=== PATIENT | female | born 1995 | race Caucasian/White ===

== ENCOUNTER 2016-07-24 10:03 | Emergency (ER) | payer MEDICAID ==
[2016-07-24 10:05] VITALS: BMI 18.8
[2016-07-24 10:09] VITALS: TEMP 98.2; O2SAT 100
[2016-07-24] MEDS ORDERED: Sodium Chloride 0.9% 1,000 ML IV STA (10:21)
--- NOTE | 2016-07-24 10:21 | ED PDOC ---
Arrival/HPI - General Historian: Patient - General Chief Complaint: Abdominal Pain Time Seen by Provider: 07/24/16 10:14 - History of Present Illness Narrative History of Present Illness (Text): 07/24/16 10:21 20 y/o female, no significant pmh, nkda, c/o abdominal pain with diarrhea started early this morning. Pt. stated that she has been fasting lately due to her taoism reason, feeling constipated with the last bowel movement about 1- 2 days ago, woke up this morning around 1am and started to drink entire bottle of magnesium citrate, started to have abdominal pain and watery diarrhea 1-2 hours after. Pt. stated that she feels tire and leg cramp now, no dizziness, no numbness or tingling, no palpitation, no night sweat, no dizziness, no change in vision, no other medical or psychological complaints. (Landen Alicea) Past Medical History - Provider Review Nursing Documentation Reviewed: Yes - Past History Past History: No Previous - Infectious Disease Hx of Infectious Diseases: None - Tetanus Immunization Tetanus Immunization: Unknown - Psychiatric Hx Depression: No Hx Emotional Abuse: No Hx Physical Abuse: No Hx Substance Use: No - Past Surgical History Past Surgical History: No Previous - Anesthesia Hx Anesthesia: No - Suicidal Assessment Feels Threatened In Home Enviroment: No Family/Social History - Physician Review Nursing Documentation Reviewed: Yes Family/Social History: Unknown Family HX Smoking Status: Never Smoked Hx Alcohol Use: No Hx Substance Use: No Hx Substance Use Treatment: No Allergies/Home Meds Allergies/Adverse Reactions: Allergies peaches Allergy (Severe, Uncoded 07/24/16 10:05) SWELLING rash Review of Systems - Review of Systems Constitutional: absent: Fatigue, Fevers Eyes: absent: Vision Changes ENT: absent: Hearing Changes Respiratory: absent: SOB, Cough, Sputum Cardiovascular: absent: Chest Pain Gastrointestinal: absent: Abdominal Pain, Diarrhea, Nausea, Vomiting Musculoskeletal: Arthralgias, Myalgias. absent: Back Pain Skin: absent: Rash, Pruritis, Skin Lesions Neurological: absent: Headache, Dizziness, Focal Weakness, Gait Changes Psychiatric: absent: Anxiety, Depression, Suicidal Ideation Physical Exam Vital Signs Reviewed: Yes Temperature: Afebrile Blood Pressure: Normal Pulse: Regular Respiratory Rate: Normal Appearance: Positive for: Well-Appearing, Non-Toxic, Comfortable Pain Distress: Mild Mental Status: Positive for: Alert and Oriented X 3 - Systems Exam Head: Present: Atraumatic, Normocephalic Pupils: Present: PERRL Extroacular Muscles: Present: EOMI Conjunctiva: Present: Normal Mouth: Present: Moist Mucous Membranes Neck: Present: Normal Range of Motion Respiratory/Chest: Present: Clear to Auscultation, Good Air Exchange. No: Respiratory Distress, Accessory Muscle Use Cardiovascular: Present: Regular Rate and Rhythm, Normal S1, S2. No: Murmurs Abdomen: No: Tenderness, Distention, Normal Bowel Sounds (hyperactive bowel sound), Peritoneal Signs, Rebound, Guarding Back: Present: Normal Inspection. No: CVA Tenderness, Midline Tenderness Upper Extremity: Present: Normal Inspection. No: Cyanosis, Edema Lower Extremity: Present: Normal Inspection. No: Edema Neurological: Present: GCS=15, CN II-XII Intact, Speech Normal Skin: Present: Warm, Dry, Normal Color. No: Rashes Psychiatric: Present: Alert, Oriented x 3, Normal Insight, Normal Concentration Medical Decision Making - Lab Interpretations I have reviewed the lab results: Yes Interpretation: Abnormal lab values (hgb 8.9 from 8.7) ED Course and Treatment: 07/24/16 10:24 -labs/ua -IVF/pepcid -Observe and reassess 07/24/16 13:10 -Urine hcg negative. -Labs are non-significant except chronic anemia hgb 8.9 from 8.7, asymptomatic. Pt. admits that she has heavy painful prolong period, seen by the obgyn which offer her control but she refused at that time. Pt. also admits that she doesn't like to eat red meat which is another factor. Pt. has no dark color stools or bright red rectum bleeding, no epigastric pain. I will start her on iron supplement with outpatient advised for hematology/oncology and PMD follow up. -UA show show no UTI -Pt. feels completely relief, no diarrhea in the ER, feeling much better. -Discharge home with iron supplement, pepcid, stay hydrated, bed rest, follow up with your own pmd and obgyn/GI within 2 days, return to the ER for any new or worsening signs or symptoms. (Landen Alicea) 07/24/16 14:09 I was available for consultation during PA evaluation. The chart was reviewed by me, and I agree with disposition. The documented history was done by the physician string cutter. The documented physical exam was done by the physician string cutter. The documented procedures were done by the physician string cutter. (Efraín Barrera) - Lab Interpretations Lab Results: 07/24/16 10:56 07/24/16 10:56 Lab Results 07/24/16 12:50: Urine Color Yellow, Urine Appearance Sl cloudy, Urine pH 7.0, Ur Specific Ariel 1.015, Urine Protein Negative, Urine Glucose (UA) Negative, Urine Ketones 15 H, Urine Blood Negative, Urine Nitrate Negative, Urine Bilirubin Negative, Urine Urobilinogen 0.2, Ur Leukocyte Esterase Negative 07/24/16 10:56: Sodium 136, Potassium 3.8, Chloride 103, Carbon Dioxide 24, Anion Gap 13, BUN 7, Creatinine 0.4 L, Est GFR ( Amer) > 60, Est GFR (Non -Af Amer) > 60, Random Glucose 92, Calcium 9.3, Total Bilirubin 0.5, AST 22, ALT 77 H, Alkaline Phosphatase 64, Total Protein 8.2, Albumin 4.3, Globulin 3.8 , Albumin/Globulin Ratio 1.1 07/24/16 10:56: WBC 4.1 L D, RBC 4.63, Hgb 8.9 L, Hct 31.5 L, MCV 68.0 L, MCH 19.2 L, MCHC 28.3 L, RDW 18.2 H, Plt Count 498 H, MPV 9.7, Gran % 52.2, Lymph % (Auto) 35.8 H, [place] % (Auto) 10.8 H, Eos % (Auto) 0.7 L, Baso % (Auto) 0.5, Gran # 2.13, Lymph # 1.5, [place] # 0.4, Eos # 0.0, Baso # 0.02 - Medication Orders Current Medication Orders: Discontinued Medications Famotidine (Pepcid) 20 mg IVP STAT STA Stop: 07/24/16 10:25 Last Admin: 07/24/16 10:55 Dose: 20 mg Sodium Chloride (Sodium Chloride 0.9%) 1,000 mls @ 999 mls/hr IV .Q1H1M STA Stop: 07/24/16 11:21 Last Admin: 07/24/16 10:55 Dose: 999 mls/hr Ketorolac Tromethamine (Toradol) 30 mg IVP STAT STA Stop: 07/24/16 13:14 Last Admin: 07/24/16 13:20 Dose: 30 mg - PA / CHEMISTRY QUALITY CONTROL TECHNICIAN / Resident Statement / has reviewed & agrees with the documentation as recorded. Disposition/Present on Arrival - Present on Arrival Any Indicators Present on Arrival: No History of DVT/PE: No History of Uncontrolled Diabetes: No Urinary Catheter: No History of Decub. Ulcer: No History Surgical Site Infection Following: None - Disposition Have Diagnosis and Disposition been Completed?: Yes Disposition Time: 10:25 Patient Plan: Discharge - Disposition Diagnosis: Diarrhea, unspecified, Chronic anemia Disposition: HOME/ ROUTINE Patient Problems: Current Active Problems Problem Status Onset Chronic anemia Acute Diarrhea, unspecified Acute Condition: IMPROVED Additional Instructions: Discharge home with iron supplement, pepcid, stay hydrated, bed rest, follow up with your own pmd and obgyn/GI within 2 days, return to the ER for any new or worsening signs or symptoms. Prescriptions: Famotidine [Pepcid] 20 mg PO BID #14 tab Ferrous Sulfate 325 mg PO DAILY #30 tablet Referrals: Abel Gurrola MD [Staff Provider] - Follow up with primary Jean-Pierre Madsen DO [Staff Provider] - Follow up with primary Kymberly Chapa MD [Medical Doctor] - [place] up [place] [facility] [place] [facility] [place] - Follow up with primary Forms: WORK NOTE
[2016-07-24 10:59] LABS: BASO # 0.02 K/mm3 (0.0-2.0); BASO % 0.5 % (0.0-3.0); EOS % 0.7 % (1.5-5.0); GRAN # 2.13 (1.4-6.5); GRAN % 52.2 % (50.0-68.0); HEMATOCRIT 31.5 % (36.0-48.0); LYMPH # 1.5 (1.2-3.4); LYMPH % 35.8 % (22.0-35.0); MEAN CORPUSCULAR HEMOGLOBIN 19.2 pg (25.0-35.0); MEAN CORPUSCULAR HGB CONC 28.3 g/dl (31.0-37.0); MEAN PLATELET VOLUME 9.7 fl (7.0-11.0); MONO # 0.4 (0.1-0.6); MONO % 10.8 % (1.0-6.0); PLATELET COUNT 498 10^3/uL (120.0-450.0); RED CELL DISTRIBUTION WIDTH 18.2 % (11.5-14.5); WHITE BLOOD COUNT 4.1 10^3/ul (4.5-11.0)
[2016-07-24 11:00] LABS: ADD MANUAL DIFF? NO
[2016-07-24 11:09] LABS: ALB/GLOB RATIO 1.1 (1.1-1.8); ALKALINE PHOSPHATASE 64 U/L (38-133); ALT/SGPT 77 U/L (7-56); AST/SGOT 22 U/L (15-39); BILIRUBIN,TOTAL 0.5 mg/dL (0.2-1.3); BLOOD UREA NITROGEN 7 mg/dL (7-21); CALCIUM 9.3 mg/dL (8.4-10.5); CARBON DIOXIDE 24 mmol/L (21-33); CHLORIDE 103 mmol/L (98-107); GFR AFRICAN-AMERICAN > 60; GLUCOSE,RANDOM 92 mg/dL (70-110); POTASSIUM 3.8 mmol/L (3.6-5.0); SODIUM 136 mmol/L (132-148); TOTAL PROTEIN 8.2 g/dL (5.8-8.3)
[2016-07-24 12:49] VITALS: RESP 16
[2016-07-24 13:03] LABS: URINE BILIRUBIN NEGATIVE (NEGATIVE); URINE BLOOD NEGATIVE (NEGATIVE); URINE GLUCOSE (UA) NEGATIVE (NEGATIVE); URINE KETONE 15 mg/dL (NEGATIVE); URINE LEUKOCYTE ESTERASE NEGATIVE Leu/uL (NEGATIVE); URINE PROTEIN NEGATIVE mg/dL (<30 mg/dL); URINE UROBILINOGEN 0.2 E.U./dL (<1 E.U./dL)
[2016-07-24 13:05] LABS: URINE APPEARANCE SL CLOUDY (CLEAR); URINE COLOR YELLOW (YELLOW)
[2016-07-24 14:51] VITALS: BP 114/62; PULSE 71
== END 2016-07-24 14:51 | disposition home or self-care (01) ==
LOC: ED 10:03
DX: R19.7 Diarrhea, unspecified (principal); D64.9 Anemia, unspecified
CPT/HCPCS: 80053; 81003; 85025; 96361; 96374; 96375; 99283; J1885; J7040